=== PATIENT | male | born 1980 | race Two or more races ===

== ENCOUNTER 2024-06-13 09:45 | Outpatient (RCR) | payer MEDICAID, SELFPAY ==
--- NOTE | 2024-06-13 10:00 | XR_ITS ---
Examination: GAURI, hepatobiliary radioisotope scan Gallbladder ejection fraction study. Date and time of exam: June 13, 2024 0952 hrs. Indications: Diagnosis cholesterolosis of the gallbladder, pain after eating 2 weeks Technique: 5.9 mCi of 99M Hepatolite administered. Serial imaging then obtained from immediate through 60 minutes. 2.1 mcg selective catheter Kinevac administered for gallbladder ejection fraction study. Findings: Radioisotope activity within the liver is reasonably homogenous. Gallbladder, common bile duct small bowel activity noted Impression: Gallbladder activity Abnormal gallbladder ejection fraction, 6%, normal greater than 35%
== END 2024-06-18 23:59 | disposition home or self-care (01) ==
LOC: SNUC 09:45
PROVIDERS: PCP Family Medicine; Referring Provider Physician Assistant; Visit Provider Physician Assistant
DX: R93.89 Abnormal findings on diagnostic imaging of other specified body structures (principal)
CPT/HCPCS: 78227; A9537; J2805